=== PATIENT | male | born 1960 | race Caucasian/White ===

== ENCOUNTER 2025-01-31 03:00 | Emergency (ER) | payer BC, SELFPAY ==
[2025-01-31 03:02] VITALS: BP 178/98
[2025-01-31] MEDS: TORADOL 15 MG IV ×2 (03:47→06:01)
[2025-01-31] MEDS: ZOFRAN 4 MG IV (03:49)
[2025-01-31 04:05] LABS: Hematocrit 36.5 % (39.0-52.0); Hemoglobin 12.5 g/dL (13.0-18.0); Mean Corp Hgb Conc. 34.2 g/dL (33.0-37.0); Mean Corpuscular Volume 88.4 fL (80.0-94.0); Nucleated Red Blood Cells % 0 % (-); Platelet Count 180 10^3/uL (130-400); Red Cell Dist. Width 13.6 % (11.5-14.5)
[2025-01-31 04:08] LABS: Urine Character Clear (Clear)
[2025-01-31 04:22] LABS: ALT (SGPT) 22 U/L (0-50); AST (SGOT) 21 U/L (17-59); Albumin 4.8 g/dl (3.5-5.0); Alkaline Phosphatase 92 U/L (38-126); Blood Urea Nitrogen 20 mg/dl (9-20); Calcium 9.2 mg/dl (8.4-10.2); Carbon Dioxide 26 mmol/L (22-30); Chloride 106 mmol/L (98-107); Glucose 142 mg/dl (70-99); Potassium 4.5 mmol/L (3.5-5.1); Sodium 140 mmol/L (135-145); Total Protein 8.1 g/dl (6.3-8.2); eGFR > 60.00
[2025-01-31 05:09] LABS: Urine Red Blood Cell 26-30 /HPF (0-2); Urine White Cell None Seen /HPF (0-5)
--- NOTE | 2025-01-31 05:46 | ED.GENMED ---
History of Present Illness
<Abdirashid Sales MD, Resident - Last Filed: 01/31/25 06:03>
General
Chief Complaint: Flank Pain
Source: patient
Time Seen by Provider: 01/31/25 05:32
History of Present Illness
History of Present Illness:
Patient is a 64-year-old male who presents to the emergency department with acute right flank pain and nausea. He was in his normal state of health until 1 AM in the morning prior to his presentation to the emergency department when he suddenly
had pain with nausea he went to the bathroom and his urine was normal in color without any foul odor or cloudiness. rated the pain as a 8-9 out of 10 and pain prompting him to come to the emergency department for further evaluation. A kidney stone
in his life and only takes Synthroid for his chronic hypothyroidism. He does not take any other medications.
Past History
<Abdirashid Sales MD, Resident - Last Filed: 01/31/25 06:03>
Past History
ED Past Medical History: Hypothyroidism
ED Past Surgical History: Orthopedic
Social History
Tobacco: Non-smoker
Alcohol: None
Drug: None
Personal:
Living: with family
Review of Systems
<Abdirashid Sales MD, Resident - Last Filed: 01/31/25 06:03>
Review of Systems
Constitutional: Reports no symptoms
EENT: Reports no symptoms
Respiratory: Reports no symptoms
Cardiac: Reports no symptoms
ABD/GI: Reports no symptoms
: Reports flank pain ( Right sided flank pain)
Musculoskeletal: Reports no symptoms
Skin: Reports no symptoms
Neurological: Reports no symptoms
Endocrine: Reports no symptoms
Hematologic/Lymphatic: Reports no symptoms
Psychiatric: Reports no symptoms
Phy Exam
<Abdirashid Sales MD, Resident - Last Filed: 01/31/25 06:03>
General Physical Exam
General Presentation: moderate distress
General age: appears stated age
General Skin: warm and dry
General Habitus: normal and obese
General Mental: alert
General Hydration: appears well hydrated
Cardiovascular Exam
Cardiovascular Exam: regular rate/rhythm, no edema, no gallop, no JVD and no murmur
Pulmonary Exam
Pulmonary Exam: lungs clear, no respiratory distress, no rales, chest non tender, no crackles, no rhonchi, no stridor, no wheezing and no cough
Genitourinary Exam Male
Exam Male: other ( right flank tenderness)
Psychiatric Exam
Psychiatric Exam: normal mood/affect
Course
<Abdirashid Sales MD, Resident - Last Filed: 01/31/25 06:03>
Orders/Labs/Results
Orders:
Orders
01/31/25 03:43
CT Abd/pelvis Wo Iv Cont Urgent
Comment:
Reason For Exam: right flank pain
01/31/25 03:45
Ketorolac [Toradol] 15 mg .ROUTE .STK-MED ONE
Ondansetron Injectable [Zofran] 4 mg .ROUTE .STK-MED ONE
01/31/25 03:47
Ketorolac [Toradol] 15 mg IV NOW STA
01/31/25 03:49
Ondansetron Injectable [Zofran] 4 mg IV NOW STA
01/31/25 03:53
CMP [Comprehensive Metabolic Panel] Urgent
Complete Blood Count/With Diff Urgent
Urinalysis Reflex To Culture Urgent
Date Specimen was Collected: 01/31/25
Time Specimen was Collected: 03:51
Urine Microscopic Reflex Cult Urgent
01/31/25 05:43
HYDROmorphone [Dilaudid] 1 mg IV NOW STA
Ketorolac [Toradol] 15 mg IV NOW STA
01/31/25 05:53
0.9% Sodium Chloride 1000 ml [Nss] 500 ml IV BOLUS
01/31/25 05:54
0.9% Sodium Chloride 500 ml [Nss] 500 ml IV BOLUS
Abnormal Lab Results
01/31/25
03:53
RBC 4.13 L 10^6/uL
(4.70-6.10)
Hgb 12.5 L g/dL
(13.0-18.0)
Hct 36.5 L %
(39.0-52.0)
MPV 11.4 H fL
(7.4-10.4)
Absolute Neuts (auto) 7.9 H 10^3/uL
(1.4-6.5)
Absolute Monos (auto) 0.7 H 10^3/uL
(0.1-0.6)
Neutrophils % 75.4 H %
(42.2-75.2)
Lymphocytes % 16.3 L %
(20.5-51.1)
Glucose 142 H mg/dl
(70-99)
Ur Occult Blood Reflex 4+ A
(Negative)
Urine RBC 26-30 A /HPF
(0-2)
Urine Bacteria (Reflex) Few A
(Negative)
Urine Albumin (Reflex) 2+ A
(Neg - Trace)
01/31/25 03:53
01/31/25 03:53
Vital Signs
Initial and Last Documented VS:
Initial Vital Signs
Temp Pulse Resp BP Pulse Ox
98.2 F 70 24 178/98 98
01/31/25 03:02 01/31/25 03:02 01/31/25 03:02 01/31/25 03:02 01/31/25 03:02
Last Documented Vital Signs
Temp Pulse Resp BP Pulse Ox
98.2 F 70 24 178/98 98
01/31/25 03:02 01/31/25 03:02 01/31/25 03:02 01/31/25 03:02 01/31/25 05:46
<Loyda Drew, DO - Last Filed: 01/31/25 06:03>
Orders/Labs/Results
Orders:
Orders
01/31/25 03:43
CT Abd/pelvis Wo Iv Cont Urgent
Comment:
Reason For Exam: right flank pain
01/31/25 03:45
Ketorolac [Toradol] 15 mg .ROUTE .STK-MED ONE
Ondansetron Injectable [Zofran] 4 mg .ROUTE .STK-MED ONE
01/31/25 03:47
Ketorolac [Toradol] 15 mg IV NOW STA
01/31/25 03:49
Ondansetron Injectable [Zofran] 4 mg IV NOW STA
01/31/25 03:53
CMP [Comprehensive Metabolic Panel] Urgent
Complete Blood Count/With Diff Urgent
Urinalysis Reflex To Culture Urgent
Date Specimen was Collected: 01/31/25
Time Specimen was Collected: 03:51
Urine Microscopic Reflex Cult Urgent
01/31/25 05:43
HYDROmorphone [Dilaudid] 1 mg IV NOW STA
Ketorolac [Toradol] 15 mg IV NOW STA
01/31/25 05:53
0.9% Sodium Chloride 1000 ml [Nss] 500 ml IV BOLUS
01/31/25 05:54
0.9% Sodium Chloride 500 ml [Nss] 500 ml IV BOLUS
Abnormal Lab Results
01/31/25
03:53
RBC 4.13 L 10^6/uL
(4.70-6.10)
Hgb 12.5 L g/dL
(13.0-18.0)
Hct 36.5 L %
(39.0-52.0)
MPV 11.4 H fL
(7.4-10.4)
Absolute Neuts (auto) 7.9 H 10^3/uL
(1.4-6.5)
Absolute Monos (auto) 0.7 H 10^3/uL
(0.1-0.6)
Neutrophils % 75.4 H %
(42.2-75.2)
Lymphocytes % 16.3 L %
(20.5-51.1)
Glucose 142 H mg/dl
(70-99)
Ur Occult Blood Reflex 4+ A
(Negative)
Urine RBC 26-30 A /HPF
(0-2)
Urine Bacteria (Reflex) Few A
(Negative)
Urine Albumin (Reflex) 2+ A
(Neg - Trace)
01/31/25 03:53
01/31/25 03:53
Vital Signs
Initial and Last Documented VS:
Initial Vital Signs
Temp Pulse Resp BP Pulse Ox
98.2 F 70 24 178/98 98
01/31/25 03:02 01/31/25 03:02 01/31/25 03:02 01/31/25 03:02 01/31/25 03:02
Last Documented Vital Signs
Temp Pulse Resp BP Pulse Ox
98.2 F 70 24 178/98 98
01/31/25 03:02 01/31/25 03:02 01/31/25 03:02 01/31/25 03:02 01/31/25 05:46
<Abdirashid Sales MD, Resident - Last Filed: 01/31/25 06:03>
*Pulse Oximetry
SaO2: 98
Patient hypoxic: no
*Critical Care Note
Total Time (30-74mins, 75-104mins- exclusive of procedures): 60
<Abdirashid Sales MD, Resident - Last Filed: 01/31/25 06:03>
Update Note
Update Note:
Problem List:
acute Right flank pain
nausea
Plan:
Zofran for antiemetic
CBC and BMP ordered
urine analysis with reflex to culture
Toradol and Dilaudid for analgesia
Differential Diagnoses:
nephrolithiasis
acute pyelonephritis
hydroureter
UTI
musculoskeletal skeletal pain
Radiology:
CT scan of the abdomen - pending
EKG: not applicable
Labs:
CBC unremarkable
BMP with glucose of 142 otherwise unremarkable
Updates:
patient given Zofran for ongoing nausea�nausea improved
15 mg of Toradol given�inadequate pain control
CT scan of the abdomen and pelvis suggests nephrolithiasis - pending radiology reading
additional 50 mg of Toradol given and 1 mg Dilaudid given for pain control
education and counseling given at the bedside for nephrolithiasis
ED Attending Note
<Abdirashid Sales MD, Resident - Last Filed: 01/31/25 06:03>
-
Portions of this chart may have been created with voice recognition software.� Occasional wrong word or��sound alike� substitutions may have occurred due to the inherent limitations of voice recognition software.
<Loyda Drew DO - Last Filed: 01/31/25 06:03>
ED Attending Note
Patient seen and examined by attending physician: Yes
I performed a history and physical exam of patient and discussed management with resident, I reviewed resident's note and agree with documented findings and plan of care.: Yes
ED Attending Note:
This is a 64-year-old gentleman with history of hypothyroidism, maintained on levothyroxine who presents with abrupt onset of moderate to severe right flank pain associated with nausea. He admits to feeling restless, unable to find a comfortable
position. No history of similar episodes in the past. No associated symptoms.
He was given an IV dose of Toradol 15 mg and Zofran 4 mg with initial relief of pain but now pain is returning. No return of nausea.
64-year-old gentleman appears his stated age, awake and alert, pleasant, appears mildly uncomfortable, mildly restless, easily communicative.
Appears euvolemic.
Lungs are clear to auscultation. Respirations are easy and nonlabored.
Abdomen is rotund, soft, no appreciable tenderness. Mild right CVA tenderness to percussion.
History and exam most concerning for acute renal colic/ureteric stone. Other consideration is UTI, pyelonephritis, cholecystitis, pancreatitis, musculoskeletal back pain.
Labs are reassuring. Normal renal function.
Urinalysis shows 20-30 RBCs otherwise unremarkable. No evidence of UTI.
CAT scan shows a 3 mm stone in the mid right ureter with mild right hydroureteronephrosis.
Will give an additional dose of Toradol, and IV dose of Dilaudid and continue IV fluids.
Plan is for discharge to home with prescription for short course of oral Toradol, Percocet for as needed breakthrough pain, Zofran for as needed nausea.
Will refer to urology for follow-up.
Discharge Plan
Departure
Discharge Problem:
Right ureteral kidney stone
Instructions: Kidney Stones (DC), How to Strain Your Urine
Prescriptions:
New
ketorolac 10 mg tablet
10 mg PO Q6H 5 Days Qty: 20 0RF
oxycodone-acetaminophen [Percocet] 5-325 mg Tablet
1 tab PO Q4HPRN PRN (Reason: pain) Qty: 10 0RF
ondansetron 4 mg tablet,disintegrating
4 mg PO QID PRN (Reason: nausea and vomiting) Qty: 20 0RF
No Action
diazepam [Valium] 5 mg tablet
5 mg PO TID PRN (Reason: muscle spasm) Qty: 10 0RF
Referrals:
Adan Cm MD [Active, Urology] - Call in 1-3 days for appt
Alexx Clifford Jr., DO [Family Provider, Family Practice]
Interventions
Interventions:
*Risk Screen - Suicide Last Done: 01/31/25 03:02
*General Assessment Last Done: 01/31/25 03:30
*Neglect/Abuse Screening Last Done: 01/31/25 03:02
Discharge Date and Time
Print Language: [id number]
[2025-01-31] MEDS: NSS 500 IV (05:59)
[2025-01-31] MEDS: DILAUDID 1 MG IV (06:04)
[2025-01-31 08:49] VITALS: BP 145/92
== END 2025-01-31 09:06 | disposition home or self-care (01) ==
LOC: EMR 03:00
PROVIDERS: EMERGENCY PHYSICIAN Emergency Medicine; FAMILY PHYSICIAN Family Medicine
DX: N13.2 Hydronephrosis with renal and ureteral calculous obstruction (principal); E03.9 Hypothyroidism, unspecified
CPT/HCPCS: 99284; 96374; 96375; 74176; 80053; 81003; 81015; 85025